=== PATIENT | female | born 1990 | race Caucasian/White ===

== ENCOUNTER 2017-11-10 11:11 | Emergency (ER) | payer MEDICAID ==
[~2017-11-10] VITALS: Ht 147.3 cm; Wt 72.7 kg
[2017-11-10 11:30] VITALS: Ht 147.3 cm; Wt 72.7 kg
[2017-11-10] MEDS ORDERED: PREDNISONE20 MG PO (13:21)
[2017-11-10] MEDS ORDERED: TRIDERM90 GM TP (13:21)
[2017-11-10 13:50] VITALS: BP 126/78
== END 2017-11-10 13:52 | disposition home or self-care (01) ==
LOC: D.ER 11:11
DX: L25.9 Unspecified contact dermatitis, unspecified cause (principal)

== ENCOUNTER 2018-05-02 10:29 | Emergency (ER) | payer MEDICAID ==
[~2018-05-02] VITALS: Ht 147.3 cm; Wt 77.3 kg
[~2018-05-02 10:29] MED LIST: PREDNISONE20 MG PO; TRIDERM90 GM TP
[2018-05-02 10:40] VITALS: Ht 147.3 cm; Wt 77.3 kg
[2018-05-02] MEDS ORDERED: ALBUTEROL SULF8.5 GM INH (12:16)
[2018-05-02] MEDS ORDERED: PHENERGAN DM SYR5 ML PO (12:16)
[2018-05-02] MEDS ORDERED: DOXYCYCLINE HY100 M2 PO (12:16)
[2018-05-02 12:36] VITALS: BP 137/101
== END 2018-05-02 12:27 | disposition home or self-care (01) ==
LOC: D.ER 10:29
DX: J40 Bronchitis, not specified as acute or chronic (principal); R09.89 Other specified symptoms and signs involving the circulatory and respiratory systems

== ENCOUNTER 2019-01-01 08:41 | Emergency (ER) | payer MEDICAID ==
[~2019-01-01] VITALS: Ht 149.9 cm; Wt 84.1 kg
[~2019-01-01 08:41] MED LIST changes: +ALBUTEROL SULF8.5 GM INH; +DOXYCYCLINE HY100 M2 PO; +PHENERGAN DM SYR5 ML PO
[2019-01-01 08:44] VITALS: Ht 149.9 cm; Wt 84.1 kg
[2019-01-01] MEDS ORDERED: NAPROSYN500 MG PO (10:25)
[2019-01-01] MEDS ORDERED: SKELAXIN800 MG PO (10:28)
[2019-01-01 10:39] VITALS: BP 132/94
== END 2019-01-01 10:35 | disposition home or self-care (01) ==
LOC: D.ER 08:41
DX: S92.912A Unspecified fracture of left toe(s), initial encounter for closed fracture (principal); X58.XXXA Exposure to other specified factors, initial encounter; S29.011A Strain of muscle and tendon of front wall of thorax, initial encounter

== ENCOUNTER 2019-02-24 16:39 | Emergency (ER) | payer MEDICAID ==
[~2019-02-24] VITALS: Ht 149.9 cm; Wt 81.8 kg
[~2019-02-24 16:39] MED LIST changes: +NAPROSYN500 MG PO; +SKELAXIN800 MG PO
[2019-02-24 16:45] VITALS: Ht 149.9 cm; Wt 81.8 kg
[2019-02-24 17:43] LABS: BASOPHILS 1.2 % (0-2); EOSINOPHILS 1.1 % (0-7); HEMOGLOBIN 15.3 g/dL (12-16); IMMATURE GRANULOCYTES 0.2 % (0-5); LYMPHOCYTES 26.2 % (15-50); MCH 31.3 pg (26.0-34.0); NEUTROPHILS 65.3 % (40-80); PLATELET COUNT 374 10x3/uL (130-400); RBC 4.89 10x6/uL (4.00-5.40); RDW 13.3 % (11.5-14.5); WBC 6.5 10x3/uL (4.8-10.8)
[2019-02-24 18:24] LABS: CALC OSMOLALITY 276 mosm/kg (275-300); CALCIUM 8.7 mg/dL (8.5-10.1); CARBON DIOXIDE 25.9 mmol/L (21.0-32.0); CHLORIDE - SERUM 100 mmol/L (98-107); CREATININE - SERUM 0.8 mg/dL (0.6-1.3); GLUCOSE 97 mg/dL (74-106); POTASSIUM - SERUM 4.1 mmol/L (3.5-5.1); SODIUM 139 mmol/L (136-145); UREA NITROGEN 10 mg/dL (7-18); eGFR NON AFRICAN AMERICAN 89 mL/min (90-120)
[2019-02-24 18:39] LABS: ALKALINE PHOSPHATASE 115 U/L (46-116); ALT (SGPT) 38 U/L (10-68); BILIRUBIN - TOTAL 0.52 mg/dL (0.2-1.3); PROTEIN - SERUM 7.6 g/dL (6.4-8.2)
[2019-02-24] MEDS ORDERED: PHENERGAN6.25 MG/5 PO (18:58)
[2019-02-24] MEDS ORDERED: ZPAK PO (18:58)
[2019-02-24] MEDS ORDERED: MEDROL DOSE PACK4 MG PO (18:58)
[2019-02-24 19:23] VITALS: BP 132/89
== END 2019-02-24 19:23 | disposition home or self-care (01) ==
LOC: D.ER 16:39
PROVIDERS: Family Medicine
DX: J06.9 Acute upper respiratory infection, unspecified (principal); J40 Bronchitis, not specified as acute or chronic